=== PATIENT | female | born 2000 | race Caucasian/White ===

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

== ENCOUNTER 2018-01-11 16:29 | Inpatient (IN) | payer OTHER ==
[2018-01-11 17:38] LABS: HEMATOCRIT 42.4 % (36.0-47.0); HEMOGLOBIN 14.1 g/dl (12.0-15.5); MEAN CORPUSCULAR HGB CONC 33.3 g/dl (32.0-36.5); MEAN CORPUSCULAR VOLUME 90.2 fl (80.0-96.0); PLATELET COUNT, AUTOMATED 316 10^3/uL (150-450); RED CELL DISTRIBUTION WIDTH 13.4 % (11.5-14.5); WHITE BLOOD COUNT 9.3 10^3/uL (4.0-10.0)
[2018-01-11 17:56] LABS: CONTROL LINE HCG INT CTR LINE PRESENT; HCG, SERUM QUALITATIVE NEGATIVE (NEGATIVE)
[2018-01-11 18:04] LABS: ACETAMINOPHEN LEVEL < 2.0 UG/ML (10.0-30.0); ALBUMIN 4.3 GM/DL (3.2-5.2); ALBUMIN/GLOBULIN RATIO 1.19 (1.00-1.93); ALKALINE PHOSPHATASE 95 U/L (45-117); ALT/SGPT 15 U/L (12-78); ANION GAP 9 MEQ/L (8-16); AST/SGOT 12 U/L (7-37); BILIRUBIN,DIRECT < 0.1 MG/DL (0.0-0.2); BILIRUBIN,TOTAL 0.3 MG/DL (0.2-1.0); BLOOD UREA NITROGEN 10 MG/DL (7-18); CARBON DIOXIDE LEVEL 23 MEQ/L (21-32); CHLORIDE LEVEL 106 MEQ/L (98-107); CREATININE FOR GFR 0.84 MG/DL (0.55-1.30); ETHYL ALCOHOL (ETHANOL) < 0.003 % (0.000-0.010); GLUCOSE, FASTING 100 MG/DL (70-100); POTASSIUM SERUM 3.5 MEQ/L (3.5-5.1); SALICYLATE LEVEL < 1.7 MG/DL (5.0-30.0); SODIUM LEVEL 138 MEQ/L (136-145); TOTAL PROTEIN 7.9 GM/DL (6.4-8.2)
[2018-01-11 19:20] LABS: AMPHETAMINES LEVEL URINE NEGATIVE (NEGATIVE); BARBITURATES URINE NEGATIVE (NEGATIVE); BENZODIAZEPINES URINE NEGATIVE (NEGATIVE); CANNABINOIDS URINE NEGATIVE (NEGATIVE); COCAINE METABOLITE URINE NEGATIVE (NEGATIVE); METHADONE URINE NEGATIVE (NEGATIVE); OPIATES URINE NEGATIVE (NEGATIVE); PHENCYCLIDINE URINE NEGATIVE (NEGATIVE)
[2018-01-11] MEDS ORDERED: MOM 30ML SUSPENSION UDC PO (20:00)
[2018-01-11] MEDS ORDERED: ACETAMINOPHEN TAB 650MG DOSE (2X325MG) PO (20:00)
[2018-01-11] MEDS ORDERED: MAALOX 30 ML SUSP *UDC PO (20:00)
[2018-01-12] MEDS: traZODone 50 MG TAB PO (21:32)
[2018-01-13] MEDS: traZODone 50 MG TAB PO (20:35)
[2018-01-14] MEDS: traZODone 50 MG TAB PO (20:37)
[2018-01-15] MEDS: traZODone 50 MG TAB PO (20:24)
[2018-01-16] MEDS: traZODone 50 MG TAB PO (21:33)
[2018-01-17] MEDS: traZODone 50 MG TAB PO (22:24)
== END 2018-01-18 13:10 | disposition home or self-care (01) | DRG 885 ==
LOC: M ED 16:29 → M ED INP 19:49 → M PSY 22:16
DX: F33.9 Major depressive disorder, recurrent, unspecified (principal); F10.10 Alcohol abuse, uncomplicated; F41.9 Anxiety disorder, unspecified; Z91.410 Personal history of adult physical and sexual abuse; F43.10 Post-traumatic stress disorder, unspecified

== ENCOUNTER 2018-07-28 21:37 | Emergency (ER) | payer OTHER ==
[~2018-07-28] VITALS: Ht 172.7 cm; Wt 67.7 kg
[~2018-07-28 21:37] MED LIST: TRAZO50TA PO
[2018-07-28] MEDS ORDERED: SERT-155 (21:43)
[2018-07-28] MEDS ORDERED: D 50CAP (21:43)
[2018-07-28] MEDS ORDERED: NAPR-837 PO (22:38)
[2018-07-28 22:49] VITALS: BP 110/74
--- NOTE | 2018-07-29 00:44 | REP ---
Clinical: Trauma. Technique: AP, lateral, bilateral oblique views right hand . Findings: The osseous structures and joint spaces are intact and normal. There is no evidence for acute fracture or dislocation. Surrounding soft tissues are unremarkable. No subcutaneous emphysema or radiodense foreign body. Impression: No acute fracture or dislocation. Electronically Signed by Herber Beauchamp MD 07/29/2018 12:36 A
== END 2018-07-28 22:50 | disposition home or self-care (01) ==
LOC: M ED 21:37
DX: S63.601A Unspecified sprain of right thumb, initial encounter (principal); W19.XXXA Unspecified fall, initial encounter; Y92.39 Other specified sports and athletic area as the place of occurrence of the external cause; Y93.9 Activity, unspecified; Y99.9 Unspecified external cause status; G43.909 Migraine, unspecified, not intractable, without status migrainosus; Z72.0 Tobacco use; Z79.899 Other long term (current) drug therapy

== ENCOUNTER 2018-10-14 20:18 | Emergency (ER) | payer OTHER, SELFPAY ==
[~2018-10-14] VITALS: Ht 172.7 cm; Wt 68.2 kg
[~2018-10-14 20:18] MED LIST changes: +D 50CAP; +NAPR-837 PO; +SERT50TA29; +TRAZ1TAB10 PO; -TRAZO50TA PO
[2018-10-14 20:50] LABS: BASO % 0.4 % (0.0-1.0); EOS # 0.1 10^3/uL (0.0-0.50); EOS % 0.6 % (0.0-3.0); HEMATOCRIT 39.4 % (36.0-47.0); HEMOGLOBIN 12.7 g/dl (12.0-15.5); LYMPH # 2.5 10^3/uL (1.5-6.5); MEAN CORPUSCULAR HEMOGLOBIN 28.7 pg (27.0-33.0); MEAN CORPUSCULAR HGB CONC 32.2 g/dl (32.0-36.5); MEAN CORPUSCULAR VOLUME 88.9 fl (80.0-96.0); MONO # 0.5 10^3/uL (0.0-0.8); MONO % 5.5 % (0.0-5.0); NEUTROPHILS # 5.4 10^3/uL (1.8-7.7); NEUTROPHILS % 63.4 % (36.0-66.0); PLATELET COUNT, AUTOMATED 275 10^3/uL (150-450); RED BLOOD COUNT 4.43 10^6/uL (4.00-5.40); WHITE BLOOD COUNT 8.5 10^3/uL (4.0-10.0)
[2018-10-14 21:49] LABS: ALBUMIN 4.2 GM/DL (3.2-5.2); ALT/SGPT 14 U/L (12-78); BILIRUBIN,DIRECT < 0.1 MG/DL (0.0-0.2); BILIRUBIN,TOTAL 0.3 MG/DL (0.2-1.0); BLOOD UREA NITROGEN 14 MG/DL (7-18); CALCIUM LEVEL 8.8 MG/DL (8.5-10.1); CARBON DIOXIDE LEVEL 25 MEQ/L (21-32); CHLORIDE LEVEL 107 MEQ/L (98-107); CREATININE FOR GFR 0.78 MG/DL (0.55-1.30); GLUCOSE, FASTING 90 MG/DL (70-100); LIPASE 103 U/L (73-393); POTASSIUM SERUM 3.9 MEQ/L (3.5-5.1); SODIUM LEVEL 142 MEQ/L (136-145); TOTAL PROTEIN 7.9 GM/DL (6.4-8.2)
[2018-10-14 23:45] LABS: HCG, SERUM QUALITATIVE NEGATIVE (NEGATIVE)
[2018-10-14 23:59] VITALS: BP 112/63
--- NOTE | 2018-10-15 00:39 | REPVR ---
EXAM: US Pelvis Complete, Transabdominal EXAM DATE/TIME: 10/14/2018 11:46 PM CLINICAL HISTORY: 18 years old, female; Pelvic pain; Additional info: Llq/pelvic pain, R/O ovarian cyst/torsion TECHNIQUE: Imaging protocol: Real-time transabdominal pelvic ultrasound with image documentation. Complete exam. COMPARISON: No relevant prior studies available. FINDINGS: Uterus/cervix: Uterus is normal measuring 8.3 x 3.3 x 5.0 cm. Endometrial stripe is normal measuring 9.5 mm. Right adnexa: Right ovary measures 4.0 x 3.3 x 2.5 cm. Numerous subcentimeter follicles are seen in the right ovary No mass. Normal blood flow. Left adnexa: Left ovary measures 5.1 x 2.8 x 2.1 cm. Numerous subcentimeter follicles are seen in the left ovary. No mass. Normal blood flow. Free fluid: None. Bladder: Normal. IMPRESSION: No evidence of ovarian torsion. 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 Electronically signed by: Lynn Rodriguez On 10/15/2018 00:38:46 AM
[2018-10-15 01:34] LABS: CHLAMYDIA DNA AMPLIFICATION NEGATIVE (NEGATIVE); GC DNA AMPLIFICATION NEGATIVE (NEGATIVE)
== END 2018-10-15 01:23 | disposition home or self-care (01) ==
LOC: M ED 20:18
DX: N83.201 Unspecified ovarian cyst, right side (principal); N83.202 Unspecified ovarian cyst, left side